=== PATIENT | male | born 1945 | race Caucasian/White ===

== ENCOUNTER 2017-07-26 12:02 | Emergency (ER) | payer OTHER ==
[~2017-07-26] VITALS: Ht 180.3 cm; Wt 114.6 kg
[~2017-07-26 12:02] MED LIST: ANTIVERT25 MG PO; CO Q-10100 MG PO; COLCRYS0.6 MG PO; DAILY VALUE1 EACH PO; FISH OIL 1,2001 EAC4 PO; LISINOPRIL20 MG PO; LITE COAT ASPI325 M1 PO; MECLIZINE HCL25 MG PO; METFORMIN HCL1000 MG PO; MOTRIN600 MG PO; PRAVASTATIN SOD40 MG PO; SKELAXIN800 MG PO; VITAMIN D-32000 UNI2 PO; ZOFRAN ODT8 MG PO
[2017-07-26 12:44] LABS: HEMOGLOBIN 15.4 G/DL (12.5-16.6); MCH 30.4 PG (29.0-34.0); MCHC 32.8 G/DL (30.0-36.0); MCV 92.9 FL (86-99); PLATELET COUNT 203 K/uL (156-360); RBC DIS.WIDTH-CV 12.4 % (11.8-14.6); RBC DIS.WIDTH-SD 42.3 % (39-53); RED BLOOD COUNT 5.06 M/uL (4.00-5.50); WHITE BLOOD COUNT 10.6 K/uL (4.1-10.2)
[2017-07-26 12:54] LABS: ALBUMIN 4.3 g/dL (3.2-4.8); CHLORIDE 109 mEq/L (99-109); POTASSIUM 4.9 mEq/L (3.7-5.4); SODIUM 134 mEq/L (136-147)
[2017-07-26 12:57] LABS: GLUCOSE 168 mg/dL (70-99); TOTAL PROTEIN 6.7 g/dL (6.4-8.3)
[2017-07-26 12:59] LABS: APPEARANCE SL.HAZY ((CLEAR)); BILIRUBIN NEGATIVE; BLOOD LARGE; COLOR YELLOW ((YELLOW)); GLUCOSE (STRIP) 50; KETONES NEGATIVE; LEUKOCYTES TRACE; NITRITE NEGATIVE; PROTEIN (STRIP) 100; SPECIFIC GRAVITY 1.021 (1.000-1.030); UROBILINOGEN 0.2 MG/DL (0.2-1.0)
[2017-07-26 13:00] LABS: ALKALINE PHOSPHATASE 53 IU/L (3-129); CREATININE 1.5 mg/dL (0.6-1.3); GFR ESTIMATE (CALCULATED) 49 mL/min/ (58.99-99999)
[2017-07-26 13:01] LABS: UREA NITROGEN (BUN) 21 mg/dL (9-23)
[2017-07-26 13:02] LABS: AST (GOT) 18 IU/L (2-34)
[2017-07-26 13:03] LABS: ALT (GPT) 31 IU/L (3-49)
[2017-07-26 13:30] LABS: EPITHELIAL CELLS 1+ /HPF; MUCUS 1+ /LPF; RED BLOOD CELLS TNTC /HPF (0-5)
[2017-07-26 13:31] LABS: BACTERIA RARE /HPF; HYALINE CASTS 0-5 /LPF; UCUL ADDED? YES
[2017-07-26] MEDS ORDERED: PERCOCET 5/31 TABLET PO (14:47)
[2017-07-26] MEDS ORDERED: FLOMAX0.4 MG PO (14:47)
[2017-07-26] MEDS ORDERED: ZOFRAN ODT4 MG PO (14:47)
[2017-07-26] MEDS ORDERED: KEFLEX500 MG PO (14:50)
[2017-07-26 15:02] VITALS: BP 120/70
== END 2017-07-26 15:04 | disposition home or self-care (01) ==
LOC: EME 12:02
DX: N13.2 Hydronephrosis with renal and ureteral calculous obstruction (principal); R31.9 Hematuria, unspecified; Z87.442 Personal history of urinary calculi; Z88.5 Allergy status to narcotic agent
CPT/HCPCS: 74176; 80053; 81003; 85027; 87086; 99281; 99284; J1885; J2405; J7030

== ENCOUNTER 2017-07-30 12:17 | Inpatient (IN) | payer OTHER ==
[~2017-07-30] VITALS: Ht 177.8 cm; Wt 110.8 kg
[~2017-07-30 12:17] MED LIST changes: +FLOMAX0.4 MG PO; +KEFLEX500 MG PO; +PERCOCET 5/31 TABLET PO; +ZOFRAN ODT4 MG PO
[2017-07-30 13:21] LABS: HEMATOCRIT 46.2 % (38.0-50.0); MCH 29.9 PG (29.0-34.0); MCHC 32.5 G/DL (30.0-36.0); PLATELET COUNT 211 K/uL (156-360); RBC DIS.WIDTH-CV 12.4 % (11.8-14.6); RBC DIS.WIDTH-SD 41.9 % (39-53); RED BLOOD COUNT 5.02 M/uL (4.00-5.50); WHITE BLOOD COUNT 9.8 K/uL (4.1-10.2)
[2017-07-30 13:50] LABS: CHLORIDE 109 MEQ/L (99-109); POTASSIUM 4.6 MEQ/L (3.7-5.4); SODIUM 140 MEQ/L (136-147)
[2017-07-30 13:56] LABS: CREATININE 1.7 MG/DL (0.6-1.3); GFR ESTIMATE (CALCULATED) 42 mL/min/ (58.99-99999); GLUCOSE 189 mg/dL (70-99); UREA NITROGEN (BUN) 25 mg/dL (9-23)
[2017-07-30 14:17] LABS: TROP-I INTERPRETATION NEGATIVE; TROPONIN-I 0.01 ng/mL (0.0-0.30)
[2017-07-30] MEDS ORDERED: KEFLEX500 MG PO (17:47)
[2017-07-30] MEDS ORDERED: FLOMAX0.4 MG PO (17:48)
[2017-07-30] MEDS ORDERED: GLIPIZIDE10 MG PO (17:53)
[2017-07-30 22:20] VITALS: BP 136/95
[2017-07-31 00:59] LABS: TROP-I INTERPRETATION NEGATIVE; TROPONIN-I 0.02 ng/mL (0.0-0.30)
[2017-07-31 03:36] VITALS: BP 144/92
[2017-07-31 05:49] LABS: TROP-I INTERPRETATION NEGATIVE; TROPONIN-I 0.02 ng/mL (0.0-0.30)
[2017-07-31 09:04] LABS: HEMOGLOBIN A1c (GLYCOHEMOGLOB) 6.6 % (Below 5.7)
[2017-07-31 09:07] VITALS: BP 147/83
[2017-07-31 09:27] LABS: CHLORIDE 110 MEQ/L (99-109); POTASSIUM 4.6 MEQ/L (3.7-5.4); SODIUM 143 MEQ/L (136-147)
[2017-07-31 09:38] LABS: GFR ESTIMATE (CALCULATED) 31 mL/min/ (58.99-99999); GLUCOSE 137 mg/dL (70-99); UREA NITROGEN (BUN) 25 mg/dL (9-23)
[2017-07-31 09:42] LABS: CREATININE 2.2 MG/DL (0.6-1.3)
[2017-07-31 12:00] VITALS: BP 117/83
[2017-07-31 13:40] LABS: APPEARANCE SL.HAZY ((CLEAR)); BILIRUBIN NEGATIVE; BLOOD LARGE; COLOR YELLOW ((YELLOW)); GLUCOSE (STRIP) NEGATIVE; KETONES NEGATIVE; LEUKOCYTES MODERATE; NITRITE NEGATIVE; PROTEIN (STRIP) 100; SPECIFIC GRAVITY 1.011 (1.000-1.030); UROBILINOGEN 0.2 MG/DL (0.2-1.0)
[2017-07-31 14:16] LABS: BACTERIA NONE SEEN /HPF; EPITHELIAL CELLS 1+ /HPF; MUCUS NONE SEEN /LPF; RED BLOOD CELLS TNTC /HPF (0-5); UCUL ADDED? YES
[2017-07-31 15:06] VITALS: BP 126/86; BP 160/87
[2017-07-31 15:11] VITALS: BP 119/85
[2017-07-31 20:34] VITALS: BP 155/104
[2017-08-01] VITALS (7 sets, daily range): BP systolic 96–134; BP diastolic 66–92
[2017-08-01 06:10] LABS: ALBUMIN 3.9 G/DL (3.2-4.8); CHLORIDE 108 MEQ/L (99-109); GFR ESTIMATE (CALCULATED) 42 mL/min/ (58.99-99999); GLUCOSE 149 mg/dL (70-99); POTASSIUM 4.7 MEQ/L (3.7-5.4); SODIUM 141 MEQ/L (136-147); UREA NITROGEN (BUN) 27 mg/dL (9-23)
[2017-08-01 06:13] LABS: CREATININE 1.7 MG/DL (0.6-1.3)
[2017-08-02 03:46] VITALS: BP 118/72
[2017-08-02 06:08] LABS: ALBUMIN 3.8 G/DL (3.2-4.8); CHLORIDE 106 MEQ/L (99-109); POTASSIUM 4.9 MEQ/L (3.7-5.4); SODIUM 138 MEQ/L (136-147)
[2017-08-02 06:14] LABS: CREATININE 1.9 MG/DL (0.6-1.3); GFR ESTIMATE (CALCULATED) 37 mL/min/ (58.99-99999); GLUCOSE 140 mg/dL (70-99); GLUCOSE 141 mg/dL (70-99); PHOSPHORUS 4.1 mg/dL (2.5-4.9); UREA NITROGEN (BUN) 33 mg/dL (9-23)
[2017-08-02 07:10] VITALS: BP 130/78
[2017-08-02 11:33] VITALS: BP 97/64
[2017-08-02 16:29] VITALS: BP 115/72
[2017-08-02 19:10] VITALS: BP 103/68
[2017-08-03] VITALS (8 sets, daily range): BP systolic 83–124; BP diastolic 50–80
[2017-08-03 06:16] LABS: ALBUMIN 4.2 G/DL (3.2-4.8); CHLORIDE 104 MEQ/L (99-109); GFR ESTIMATE (CALCULATED) 28 mL/min/ (58.99-99999); GLUCOSE 148 mg/dL (70-99); PHOSPHORUS 4.7 mg/dL (2.5-4.9); POTASSIUM 4.7 MEQ/L (3.7-5.4); SODIUM 137 MEQ/L (136-147); UREA NITROGEN (BUN) 42 mg/dL (9-23)
[2017-08-03 06:17] LABS: CREATININE 2.4 MG/DL (0.6-1.3)
[2017-08-03 10:08] LABS: BASOPHIL (%) 0.3 % (0-1); EOSINOPHIL (%) 0.3 % (0-5); HEMATOCRIT 47.4 % (38.0-50.0); HEMOGLOBIN 14.8 G/DL (12.5-16.6); IMMATURE GRANULOCYTE (%) 0.3 % (0.0-0.7); LYMPHOCYTE (%) 19.1 % (15-42); LYMPHOCYTE COUNT 1.9 K/uL (1.0-2.8); MCH 28.9 PG (29.0-34.0); MCHC 31.2 G/DL (30.0-36.0); MCV 92.6 FL (86-99); MONOCYTE (%) 7.9 % (3-12); MONOCYTE COUNT 0.8 K/uL (0-0.8); NEUTROPHIL (%) 72.1 % (45-76); NEUTROPHIL COUNT 7.2 K/uL (1.8-6.4); PLATELET COUNT 213 K/uL (156-360); RBC DIS.WIDTH-CV 12.3 % (11.8-14.6); RBC DIS.WIDTH-SD 42.3 % (39-53); RED BLOOD COUNT 5.12 M/uL (4.00-5.50); WHITE BLOOD COUNT 9.9 K/uL (4.1-10.2)
[2017-08-04] VITALS (7 sets, daily range): BP systolic 93–144; BP diastolic 52–83
[2017-08-04 06:19] LABS: BASOPHIL (%) 0.4 % (0-1); EOSINOPHIL COUNT 0.2 K/uL (0-0.3); HEMATOCRIT 44.9 % (38.0-50.0); HEMOGLOBIN 13.7 G/DL (12.5-16.6); IMMATURE GRANULOCYTE (%) 0.3 % (0.0-0.7); LYMPHOCYTE (%) 28.6 % (15-42); LYMPHOCYTE COUNT 2.6 K/uL (1.0-2.8); MCH 28.7 PG (29.0-34.0); MCHC 30.5 G/DL (30.0-36.0); MCV 94.1 FL (86-99); MONOCYTE (%) 10.1 % (3-12); MONOCYTE COUNT 0.9 K/uL (0-0.8); NEUTROPHIL (%) 58.6 % (45-76); NEUTROPHIL COUNT 5.2 K/uL (1.8-6.4); PLATELET COUNT 208 K/uL (156-360); RBC DIS.WIDTH-CV 12.3 % (11.8-14.6); RBC DIS.WIDTH-SD 43.1 % (39-53); RED BLOOD COUNT 4.77 M/uL (4.00-5.50)
[2017-08-04 06:59] LABS: CHLORIDE 104 MEQ/L (99-109); CREATININE 2.5 MG/DL (0.6-1.3); GFR ESTIMATE (CALCULATED) 27 mL/min/ (58.99-99999); GLUCOSE 130 mg/dL (70-99); SODIUM 140 MEQ/L (136-147); UREA NITROGEN (BUN) 43 mg/dL (9-23)
[2017-08-04 08:45] LABS: ALBUMIN 3.7 G/DL (3.2-4.8); ALKALINE PHOSPHATASE 50 IU/L (3-129); ALT (GPT) 49 IU/L (3-49); AST (GOT) 25 IU/L (2-34); CHLORIDE 104 MEQ/L (99-109); CREATININE 2.4 MG/DL (0.6-1.3); GFR ESTIMATE (CALCULATED) 28 mL/min/ (58.99-99999); GLUCOSE 155 mg/dL (70-99); POTASSIUM 4.8 MEQ/L (3.7-5.4); SODIUM 139 MEQ/L (136-147); TOTAL BILIRUBIN 0.9 MG/DL (0.0-1.0); TOTAL PROTEIN 5.9 G/DL (6.4-8.3); UREA NITROGEN (BUN) 41 mg/dL (9-23)
[2017-08-05] VITALS (7 sets, daily range): BP systolic 96–133; BP diastolic 62–80
[2017-08-05 06:21] LABS: BASOPHIL (%) 0.5 % (0-1); EOSINOPHIL (%) 2.8 % (0-5); EOSINOPHIL COUNT 0.2 K/uL (0-0.3); HEMATOCRIT 43.2 % (38.0-50.0); HEMOGLOBIN 13.7 G/DL (12.5-16.6); IMMATURE GRANULOCYTE (%) 0.4 % (0.0-0.7); LYMPHOCYTE (%) 25.4 % (15-42); LYMPHOCYTE COUNT 2.2 K/uL (1.0-2.8); MCH 29.4 PG (29.0-34.0); MCHC 31.7 G/DL (30.0-36.0); MCV 92.7 FL (86-99); MONOCYTE (%) 10.7 % (3-12); MONOCYTE COUNT 0.9 K/uL (0-0.8); NEUTROPHIL (%) 60.2 % (45-76); NEUTROPHIL COUNT 5.1 K/uL (1.8-6.4); PLATELET COUNT 205 K/uL (156-360); RBC DIS.WIDTH-CV 12.2 % (11.8-14.6); RED BLOOD COUNT 4.66 M/uL (4.00-5.50); WHITE BLOOD COUNT 8.5 K/uL (4.1-10.2)
[2017-08-05 06:38] LABS: ALBUMIN 3.7 G/DL (3.2-4.8); CHLORIDE 103 MEQ/L (99-109); CREATININE 2.3 MG/DL (0.6-1.3); GFR ESTIMATE (CALCULATED) 30 mL/min/ (58.99-99999); GLUCOSE 142 mg/dL (70-99); PHOSPHORUS 4.9 mg/dL (2.5-4.9); POTASSIUM 4.8 MEQ/L (3.7-5.4); SODIUM 139 MEQ/L (136-147); UREA NITROGEN (BUN) 45 mg/dL (9-23); URIC ACID 10.4 mg/dL (3.1-9.2)
[2017-08-06 03:39] VITALS: BP 112/67
[2017-08-06 05:05] LABS: ALBUMIN 3.8 g/dL (3.2-4.8)
[2017-08-06 05:06] LABS: CHLORIDE 106 mEq/L (99-109); POTASSIUM 5.1 mEq/L (3.7-5.4); SODIUM 139 mEq/L (136-147)
[2017-08-06 05:08] LABS: GLUCOSE 167 mg/dL (70-99)
[2017-08-06 05:11] LABS: PHOSPHORUS 3.6 mg/dL (2.5-4.9)
[2017-08-06 05:12] LABS: CREATININE 2.3 mg/dL (0.6-1.3); GFR ESTIMATE (CALCULATED) 30 mL/min/ (58.99-99999)
[2017-08-06 05:13] LABS: UREA NITROGEN (BUN) 41 mg/dL (9-23)
[2017-08-06 08:22] VITALS: BP 135/95
[2017-08-06 11:35] VITALS: BP 114/72
[2017-08-06 16:00] VITALS: BP 160/89
[2017-08-06 20:06] VITALS: BP 151/97
[2017-08-06 22:20] VITALS: BP 120/82
[2017-08-07 03:50] VITALS: BP 121/74
[2017-08-07 05:56] LABS: ALBUMIN 3.7 G/DL (3.2-4.8); CHLORIDE 105 MEQ/L (99-109); CREATININE 2.2 MG/DL (0.6-1.3); GFR ESTIMATE (CALCULATED) 31 mL/min/ (58.99-99999); GLUCOSE 150 mg/dL (70-99); PHOSPHORUS 3.7 mg/dL (2.5-4.9); POTASSIUM 4.5 MEQ/L (3.7-5.4); SODIUM 140 MEQ/L (136-147); UREA NITROGEN (BUN) 37 mg/dL (9-23)
[2017-08-07 07:26] VITALS: BP 138/75
[2017-08-07] MEDS ORDERED: FUROSEMIDE20 MG PO (10:56)
[2017-08-07] MEDS ORDERED: ASPIR-LOW81 MG PO (10:56)
[2017-08-07] MEDS ORDERED: LOPRESSOR25 MG PO (10:56)
[2017-08-07 12:03] VITALS: BP 136/88
== END 2017-08-07 16:20 | disposition home health service (06) | DRG 291 ==
LOC: EME 12:17 → EDOF 18:04 → 4EAST 18:04 → ENRESERV 18:05 → 4EAST 22:07
PROVIDERS: Hospitalist; Internal Medicine Nephrology; Physician Assistant; Physician Assistant Medical
DX: I50.21 Acute systolic (congestive) heart failure (principal); N17.0 Acute kidney failure with tubular necrosis; J96.01 Acute respiratory failure with hypoxia; N13.2 Hydronephrosis with renal and ureteral calculous obstruction; E78.5 Hyperlipidemia, unspecified; E11.22 Type 2 diabetes mellitus with diabetic chronic kidney disease; I13.0 Hypertensive heart and chronic kidney disease with heart failure and stage 1 through stage 4 chronic kidney disease, or unspecified chronic kidney disease; E66.9 Obesity, unspecified; I42.9 Cardiomyopathy, unspecified; R31.0 Gross hematuria; N18.3 Chronic kidney disease, stage 3 (moderate); Z82.49 Family history of ischemic heart disease and other diseases of the circulatory system; Z68.37 Body mass index [BMI] 37.0-37.9, adult; Z87.442 Personal history of urinary calculi; Z80.9 Family history of malignant neoplasm, unspecified; Z79.899 Other long term (current) drug therapy; Z99.81 Dependence on supplemental oxygen
CPT/HCPCS: 71046; 71275; 74176; 76770; 78452; 80048; 80048 91; 80053; 80069; 81003; 82948; 83036; 84484; 84550; 85025; 85027; 87086; 93005; 93017; 93306; 94010; 94799; 99202; 99281; 99285; A9500; G0378; J1644; J1815; J1940; J2785; J7030